=== PATIENT | male | born 1960 | race Caucasian/White ===

== ENCOUNTER 2020-01-24 08:42 | Emergency (ER) | payer OTHER ==
[~2020-01-24] VITALS: Ht 177.8 cm; Wt 77.3 kg
[2020-01-24 09:00] VITALS: BP 137/93
--- NOTE | 2020-01-24 09:23 | NUR ---
Pt was 95-96% on room air with ambulation.
== END 2020-01-24 10:24 | disposition home or self-care (01) ==
LOC: ER 08:44
DX: U07.1 COVID-19 (principal); R50.9 Fever, unspecified; R06.02 Shortness of breath; R53.83 Other fatigue; R05 Cough; I10 Essential (primary) hypertension; Z88.0 Allergy status to penicillin; Z88.8 Allergy status to other drugs, medicaments and biological substances
CPT/HCPCS: 36415; 71045; 87635; 99284